=== PATIENT | female | born 1995 | race Caucasian/White ===

== ENCOUNTER 2022-03-20 13:39 | Emergency (ER) | payer BC, SELFPAY ==
[2022-03-20 14:10] VITALS: BP 137/98; PULSE 72; RESP 18; TEMP 36.2; O2SAT 95; BMI 22.4
--- NOTE | 2022-03-20 16:01 | ED_ITS ---
HPI - Ear Problem General Chief complaint: Ear/Nose/Throat Problem Stated complaint: RT ear pain Time Seen by Provider: 03/20/22 15:54 History of Present Illness HPI Narrative: This 26-year-old female comes in reporting pain in her right ear with decreased hearing. She states that she did recently travel to [place] in this area and had elevation change related to flying and hiking. She states that she has a history of otitis media with rupture of membranes. She does not report any fevers. She states that she has some nasal congestion. Related Data Previous Rx's Medication Instructions Recorded amoxicillin 500 mg capsule 500 mg PO TID 10 days #30 caps 03/20/22 ketorolac 10 mg tablet 10 mg PO Q8H 5 days #15 tabs 03/20/22 Allergies Allergy/AdvReac Type Severity Reaction Status Date / Time cigarette smoke Allergy Mild Congested Verified 03/20/22 14:15 Review of Systems Status of ROS: Reports: 10 or more systems reviewed and unremarkable except as noted in History and below Narrative: Constitutional: No fevers, no weight gain or loss. Eyes: No discharge. No vision changes. HENT: Nasal congestion. Right ear pain. Decreased hearing in the right ear. Cardiovascular: No chest pain, no palpitations. Respiratory: No shortness of breath, no wheezes, no cough. Gastrointestinal: No abdominal pain, no vomiting, no diarrhea. Genitourinary: No dysuria, no hematuria. Musculoskeletal: Normal range of motion. Skin: No rashes, no pruritis. Neurological: No dizziness, weakness, sensory change, speech change. Endo/Heme/Allergies: No bruising or bleeding. No polydipsia. Pysch: no suicidality, no anxiety, no insomnia. All other systems reviewed and are negative. Exam Narrative: Exam Narrative: Constitutional: Well-developed, well-nourished, no acute distress. HEENT: Normocephalic, atraumatic. Left tympanic membrane appears normal. Right tympanic membrane is bulging with erythema and purulence. Neck: Normal range of motion. Nontender. Supple. Heart: Regular. No murmurs. Normal rate. Intact distal pulses. Lungs: Clear to auscultation. No chest discomfort. No wheezes, rhonchi, or rales. Abdomen: Normal bowel sounds. Nontender. No rebound tenderness. Genitalia: Deferred. Back: No midline tenderness. Normal range of motion. Extremities: Normal range of motion. No injury. Skin: Intact. No rash. Warm. No erythema or pallor. Neurologic: No altered sensation. No weakness. Alert and oriented. Psychiatric: No suicidality. No anxiety or depression. No insomnia. Nursing notes and vitals signs are reviewed. Const: Vital Signs, click to edit/add: Vital Signs - 24 hr 03/20/22 14:10 Temperature 97.1 F L Pulse Rate [Right Pulse Oximeter] 72 Respiratory Rate 18 Blood Pressure [Ri ght Upper Arm] 137/98 H Pulse Oximetry 95 Oxygen Delivery Me thod Room Air Course Vital Signs Vital signs: Initial Vital Signs Temperature 97.1 F L 03/20/22 14:10 Temperature Source Temporal Artery Scan 03/20/22 14:10 Pulse Rate 72 03/20/22 14:10 Respiratory Rate 18 03/20/22 14:10 Blood Pressure 137/98 H 03/20/22 14:10 Blood Pressure Mean 111 03/20/22 14:10 Blood Pressure Position Sitting 03/20/22 14:10 Pulse Oximetry 95 03/20/22 14:10 Oxygen Delivery Method 03/20/22 14:10 Vital Signs Temperature 97.1 F L 03/20/22 14:10 Pulse Rate 72 03/20/22 14:10 Respiratory Rate 18 03/20/22 14:10 Blood Pressure 137/98 H 03/20/22 14:10 Pulse Oximetry 95 03/20/22 14:10 Oxygen Delivery Method 03/20/22 14:10 Temperature 97.1 F L 03/20/22 14:10 Pulse Rate 72 03/20/22 14:10 Respiratory Rate 18 03/20/22 14:10 Blood Pressure 137/98 H 03/20/22 14:10 Pulse Oximetry 95 03/20/22 14:10 Oxygen Delivery Method 03/20/22 14:10 Medical Decision Making MDM Narrative Medical decision making narrative: This patient comes in with right ear pain and decreased hearing. On exam there is bulging of the tympanic membrane with erythema and some purulence. She received an intramuscular injection of Toradol 30 mg and prescriptions for amoxicillin and Toradol. I advised her to follow-up with Ear Nose and Throat if symptoms are not improving or recurrent. Discharge Plan Discharge Clinical Impression: Otitis media Patient Disposition: Home, Self-Care Condition: Stable Additional Instructions: Take medication as prescribed. Follow up with MD or return if worsening. Prescriptions: New amoxicillin 500 mg capsule 500 mg PO TID 10 Days Qty: 30 0RF ketorolac 10 mg tablet 10 mg PO Q8H 5 Days Qty: 15 0RF Stand Alone Forms: [facility] Info Instructions
[2022-03-20] MEDS: KETOROLAC 30 MG/ML inj IM (16:28)
[2022-03-20 16:31] VITALS: BP 128/84; PULSE 85; RESP 16; TEMP 37.4; O2SAT 99; BMI 22.4
== END 2022-03-20 16:38 | disposition home or self-care (01) ==
LOC: ED 16:32
PROVIDERS: Emergency Provider Emergency Medicine Emergency Medical Services
DX: H66.91 Otitis media, unspecified, right ear (principal)
CPT/HCPCS: 96372; 99283; 99284; J1885

== ENCOUNTER 2023-09-13 16:59 | Emergency (ER) | payer BC, SELFPAY ==
[2023-09-13 17:15] VITALS: BP 120/94; PULSE 69; RESP 16; O2SAT 100; BMI 20.4
--- NOTE | 2023-09-13 17:25 | XR_ITS ---
Patient: LEON CHRISTINE Facility:?[facility] Patient ID:?[id number] Site Patient ID:?[id number]. Site :?[id number] Study:?XRay-Extremity Right WRIST 3 VIEWS-09/13/2023 5:53:09 PM Ordering Physician:STACEY Final Report: INDICATION: Ulnar wrist pain. TECHNIQUE: Three views of the right wrist. FINDINGS: Negative. No fracture, dislocation, erosion, or intrinsic lesion. No obvious soft tissue swelling. IMPRESSION: Negative three-view right wrist. Dictated by Damian Ortega MD @ 09/13/2023 6:33:49 PM Signed by:?Damian Ortega MD @09/13/2023 6:33:49 PM
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
== END 2023-09-13 19:09 | disposition home or self-care (01) ==
PROVIDERS: Emergency Provider Student in an Organized Health Care Education/Training Program
DX: S63.501A Unspecified sprain of right wrist, initial encounter (principal)
CPT/HCPCS: 73110; 99282; 99283